=== PATIENT | female | born 2000 | race Caucasian/White ===

== ENCOUNTER 2018-04-29 23:14 | Emergency (ER) | payer OTHER ==
[2018-04-29] MEDS ORDERED: NS 1,000 ML IV ONE ×2 (23:26)
[2018-04-29] MEDS ORDERED: ONDANSETRON 4 MG/2 ML VIAL IVP ONE (23:26)
[2018-04-29] MEDS ORDERED: FAMOTIDINE 20 MG/NACL 50 ML IV ONE (23:26)
--- NOTE | 2018-04-29 23:26 | EDPHY ---
H & P Stated Complaint: N/V X 2 DAYS Source: Patient Exam Limitations: No limitations - Personal History LMP (Females 10-55): Now Current Tetanus Diphtheria and Acellular Pertussis (TDAP): Yes - Medical/Surgical History Hx Asthma: No Hx Chronic Respiratory Disease: No Hx Diabetes: No Hx Cardiac Disease: No Hx Renal Disease: No Hx Cirrhosis: No Hx Alcoholism: No Hx HIV/AIDS: No Hx Splenectomy or Spleen Trauma: No Other PMH: MJ USE, ARTHRITIS BACK AND HIPS - Social History Smoking Status: Current every day smoker Time Seen by Provider: 04/29/18 23:22 HPI/ROS: HPI: This is a 17-year-old female who presents with Chief Complaint: Nausea, vomiting x2 days Location: GI Quality: Nausea, vomiting Duration: 2 days Signs and Symptoms: no fever, + nausea, + vomiting, no hematemesis, no blood in stool, no abdominal bloating, no diarrhea, no back pain, no urinary symptoms, no vaginal bleeding/discharge, no indigestion, no chest pain, no shortness of breath, + epigastric pain Timing: Acute, worsening Severity: Moderate Context: Patient is currently on her menses, presents with sudden onset of nausea 2 days and woke up yesterday morning nausea approximately 5-10 episodes of vomiting throughout the day. She reports that she has epigastric pain that is described as burning and sharp in nature. It is nonradiating. She reports that she had only 1 episode of loose stool. No recent foreign travel, no recent antibiotic use, no recent concerns of food borne illness. Patient reports that she does not drink alcohol regularly or use NSAIDs. Denies indigestion, food intolerances, early satiety. Modifying Factors: Comment: ROS: A comprehensive 10 system review of systems is otherwise negative aside from elements mentioned in the history of present illness. MEDICAL/SURGICAL/SOCIAL HISTORY: Medical history: ARTHRITIS BACK AND HIPS Surgical history: Denies Social history: Marijuana use. Family history noncontributory. CONSTITUTIONAL: Well-developed, well-nourished, nontoxic-appearing teenage white female, awake and alert, no obvious distress HEENT: Atraumatic and normocephalic, PERRL, EOMI. Nares patent; no rhinorrhea; no nasal mucosal edema. Tympanic membranes clear. Oropharynx clear, no exudate and moist pink mucosa. Airway patent. No lymphadenopathy. No meningismus. Cardiovascular: Normal S1/S2, regular rate, regular rhythm, without murmur rub or gallop. PULMONARY/CHEST: Symmetrical and nontender. Clear to auscultation bilaterally. Good air movement. No accessory muscle usage. ABDOMEN: Soft, nondistended, moderate epigastric tenderness, no rebound, no guarding, no peritoneal signs, no masses or organomegaly. No CVAT. EXTREMITIES: 2/2 pulses, strength 5/5, no deformities, no clubbing, no cyanosis or edema. NEUROLOGICAL: no focal neuro deficits. GCS 15. SKIN: Warm and dry, no erythema. no rash. Good capillary refill. (Jenna Almonte) Constitutional: Initial Vital Signs Temperature (C) 36.8 C 04/29/18 23:16 Heart Rate 105 H 04/29/18 23:16 Respiratory Rate 16 04/29/18 23:16 Blood Pressure 136/87 H 04/29/18 23:16 O2 Sat (%) 97 04/29/18 23:16 O2 Delivery Mode Room Air Allergies/Adverse Reactions: amoxicillin Allergy (Verified 04/29/18 23:16) Home Medications: Medication Instructions Recorded NK [No Known Home Meds] 04/29/18 Medical Decision Making ED Course/Re-evaluation: Signs reviewed and show mild tachycardia upon arrival. IV access, laboratory studies, CT abdomen and pelvis scan ordered Patient given 1 L normal saline, IV Pepcid and IV Zofran 4 mg 0005: End of shift. Signed over to Dr. Man pending laboratory studies CT results. This patient was seen under the supervision of my secondary supervising physician. I evaluated care for this patient with attending. Discussed this patient with Dr. Man. (Jenna Almonte) 0112: Patient was signed over to me at midnight. She was pending a CT scan abdomen pelvis with IV contrast for abdominal pain. This CT scan is faxed me by direct Radiology at time 1:02 a.m. That shows a mildly dilated appendix with questionable mild wall thickening but without convincing surrounding inflammatory changes possibly representing early mild acute appendicitis. Additionally there is mild wall thickening of the terminal ileum suspicious for terminal ileitis IUD in the lower uterine segment. Right arm suspected be embedded in the myometrium follow up with OBGYN about this. I went saw and evaluated the patient she states that she had 5 episodes of vomiting and some abdominal pain or abdominal pain was predominantly in the upper abdomen. She denies any current right lower quadrant pain. However given her abnormal CT scan and leukocytosis I will consult surgery for evaluation 0118: I have consult General surgery about the patient's CT scan results. I am concerning for acute appendicitis however clinically on exam the abdomen is soft in the right lower quadrant. Dr. Lofton will consult see and evaluate the patient. 0212AM: Dr. Lofton with General surgery has seen and evaluated the patient. He does not feel this is acute appendicitis he feels comfortable the patient going home. We discussed return precautions with the patient. She understands return emergency room she develops worsening abdominal pain, fever, vomiting. She is comfortable going home. We discussed return precautions Dr. Lofton is okay with her going home. He does not feel this is appendicitis. 0229AM: Updated patient on treatment plan. Updated patient on going home and return precautions Additionally discussed at length about her IUD and how this is position. She should follow up with OBGYN. She understands and will do so. She understands return emergency room if she develops worsening abdominal pain, fever, vomiting. (Jose Manuel Man) Differential Diagnosis: Abdominal pain including but not limited to appendicitis, cholecystitis, gastritis and urinary tract infection. (Jenna Almonte) - Data Points Laboratory Results: Laboratory Results 04/29/18 23:30 04/30/18 00:05 04/30/18 04/30/18 04/29/18 01:23 00:05 23:30 WBC RBC Hgb Hct MCV MCH MCHC RDW Plt Count MPV Neut % (Auto) Lymph % (Auto) [place] % (Auto) Eos % (Auto) Baso % (Auto) Nucleat RBC Rel Count Absolute Neuts (auto) Absolute Lymphs (auto) Absolute Monos (auto) Absolute Eos (auto) Absolute Basos (auto) Absolute Nucleated RBC Immature Gran % Immature Gran # Sodium 139 mEq/L mEq/L (135-145) Potassium 3.5 mEq/L mEq/L (3.5-5.2) Chloride 105 mEq/L mEq/L (97-110) Carbon Dioxide 20 mEq/l L mEq/l (22-31) Anion Gap 14 mEq/L mEq/L (6-14) BUN 11 mg/dL mg/dL (7-23) Creatinine 0.6 mg/dL mg/dL (0.6-1.0) Estimated GFR > 60 Glucose 99 mg/dL mg/dL (70-100) Calcium 9.0 mg/dL mg/dL (8.5-10.4) Total Bilirubin 2.6 mg/dL H mg/dL (0.1-1.4) Conjugated Bilirubin 0.6 mg/dL H mg/dL (0.0-0.5) Unconjugated Bilirubin 2.0 mg/dL H mg/dL (0.0-1.1) AST 57 IU/L H IU/L (14-46) ALT 76 IU/L H IU/L (9-52) Alkaline Phosphatase 116 IU/L IU/L (38-126) Total Protein 7.9 g/dL g/dL (6.3-8.2) Albumin 4.7 g/dL g/dL (3.5-5.0) Lipase 44 IU/L IU/L (23-300) Beta HCG, Qual NEGATIVE Urine Color YELLOW Urine Appearance CLEAR Urine pH 6.0 (5.0-7.5) Ur Specific [place] > 1.060 H (1.002-1.030) Urine Protein NEGATIVE (NEGATIVE) Urine Ketones 2+ H (NEGATIVE) Urine Blood 1+ H (NEGATIVE) Urine Nitrate NEGATIVE (NEGATIVE) Urine Bilirubin NEGATIVE (NEGATIVE) Urine Urobilinogen NEGATIVE EU EU (0.2-1.0) Ur Leukocyte Esterase NEGATIVE (NEGATIVE) Urine RBC 1-3 /hpf /hpf (0-3) Urine WBC 1-3 /hpf /hpf (0-3) Ur Epithelial Cells TRACE /lpf /lpf (NONE-1+) Urine Mucus TRACE /lpf /lpf (NONE-1+) Urine Glucose NEGATIVE (NEGATIVE) 04/29/18 23:30 WBC 16.22 10^3/uL H 10^3/uL (3.80-9.50) RBC 5.68 10^6/uL H 10^6/uL (4.18-5.33) Hgb 17.2 g/dL H g/dL (12.6-16.3) Hct 50.5 % H % (38.0-47.0) MCV 88.9 fL fL (81.5-99.8) MCH 30.3 pg pg (27.9-34.1) MCHC 34.1 g/dL g/dL (32.4-36.7) RDW 12.6 % % (11.5-15.2) Plt Count 339 10^3/uL 10^3/uL (150-400) MPV 9.9 fL fL (8.7-11.7) Neut % (Auto) 84.6 % H % (39.3-74.2) Lymph % (Auto) 4.5 % L % (15.0-45.0) [place] % (Auto) 6.9 % % (4.5-13.0) Eos % (Auto) 3.3 % % (0.6-7.6) Baso % (Auto) 0.4 % % (0.3-1.7) Nucleat RBC Rel Count 0.0 % % (0.0-0.2) Absolute Neuts (auto) 13.72 10^3/uL H 10^3/uL (1.70-6.50) Absolute Lymphs (auto) 0.73 10^3/uL L 10^3/uL (1.00-3.00) Absolute Monos (auto) 1.12 10^3/uL H 10^3/uL (0.30-0.80) Absolute Eos (auto) 0.53 10^3/uL H 10^3/uL (0.03-0.40) Absolute Basos (auto) 0.07 10^3/uL 10^3/uL (0.02-0.10) Absolute Nucleated RBC 0.00 10^3/uL 10^3/uL (0-0.01) Immature Gran % 0.3 % % (0.0-1.1) Immature Gran # 0.05 10^3/uL 10^3/uL (0.00-0.10) Sodium Potassium Chloride Carbon Dioxide Anion Gap BUN Creatinine Estimated GFR Glucose Calcium Total Bilirubin Conjugated Bilirubin Unconjugated Bilirubin AST ALT Alkaline Phosphatase Total Protein Albumin Lipase Beta HCG, Qual Urine Color Urine Appearance Urine pH Ur Specific [place] Urine Protein Urine Ketones Urine Blood Urine Nitrate Urine Bilirubin Urine Urobilinogen Ur Leukocyte Esterase Urine RBC Urine WBC Ur Epithelial Cells Urine Mucus Urine Glucose Medications Given: Discontinued Medications Sodium Chloride (Ns) 1,000 mls @ 0 mls/hr IV EDNOW ONE; Wide Open PRN Reason: Protocol Stop: 04/29/18 23:27 Last Admin: 04/29/18 23:33 Dose: 1,000 mls Sodium Chloride (Ns) 1,000 mls @ 0 mls/hr IV EDNOW ONE; Wide Open PRN Reason: Protocol Stop: 04/29/18 23:27 Last Admin: 04/29/18 23:33 Dose: 1,000 mls Famotidine/Sodium Chloride (Pepcid 20 Mg (Premix)) 50 mls @ 200 mls/hr IV EDNOW ONE Stop: 04/29/18 23:40 Last Admin: 04/29/18 23:32 Dose: 50 mls Ondansetron HCl (Zofran) 4 mg IVP EDNOW ONE Stop: 04/29/18 23:27 Last Admin: 04/29/18 23:33 Dose: 4 mg Departure - Departure Disposition: Home, Routine, Self-Care Clinical Impression: Abdominal pain Qualifiers: Abdominal location: unspecified location Qualified Code(s): R10.9 - Unspecified abdominal pain Condition: Good Instructions: Gastroenteritis (ED), Acute Abdominal Pain (ED) Additional Instructions: 1. Please return emergency room she develops worsening abdominal pain fever vomiting. 2. You're appendix on her CT scan today was slightly abnormal however the surgical team did not feel that you have acute appendicitis 3. If you have worsening abdominal pain, fever, vomiting you need to return to the emergency room 4. Additionally her IUD that was seen on the CT scan needs to be further evaluated by OBGYN. 5. Please follow up with them. Referrals: [facility],. [Clinic] - As per Instructions Linh Devries MD [Medical Doctor] - As per Instructions
[2018-04-29] MEDS ORDERED: IOHEXOL 300 mgI/ML (OMNIPAQUE) 150 ML BTL IV ONE (23:32)
[2018-04-29 23:40] LABS: PLATELET COUNT 339 10^3/uL (150-400)
[2018-04-30] MEDS ORDERED: ONDANSETRON 4MG PREPACK#2 BTL TAKEHOME ONE ×2 (02:36→02:37)
--- NOTE | 2018-04-30 03:02 | GCON ---
[f rep st] CONSULTATION REFERRING PHYSICIAN: Jose Manuel Man MD REASON FOR CONSULTATION: Abdominal pain, evaluate for possible appendicitis. FINDINGS: Abdominal pain of uncertain etiology, mesenteric adenitis, calcification right lower quadrant that might possibly represent a fecalith. Elevated transaminases (minimally), Gilbert syndrome. 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 Today is . She awoke from sleep on Friday with nausea. Approximately 30 minutes later, she vomited. She had more nausea. She tried eating eggs for breakfast and vomited. Friday afternoon, she had cramping abdominal pain in the epigastrium. She was not hungry for lunch or dinner. She slept only 4 hours Friday night and managed to toss and turn a great deal. On awakening on Friday, she felt a little better. She did not have breakfast or lunch. At approximately 5 p.m., she was able to have a small amount of applesauce and rice. She has not had any vomiting since that time. Her cramps have been much more controlled. She noticed a pins and needle feeling in her hands. She did Google that and was concerned she might have toxic shock from what she found on the Internet. She just finished her most recent menstrual period today. She has had a bit of a rash on her chest and neck. She is now plus-minus hungry. She certainly is feeling dramatically better in the ER now than when she first arrived. There is no history of a recent upper respiratory tract infection, though she feels may have a slight sore throat today. There is no history of diarrhea. There is no history of travel or antibiotics in the last 6 months. There is no history of inflammatory bowel disease. She has not had any prior similar symptoms or any prior abdominal surgery. She has had an IUD placed. PAST MEDICAL HISTORY: She vapes approximately once every 5 days. She does not drink. 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 She has no known drug allergies. She is not currently taking medication. She does, however, use cannabis for insomnia and arthritis in her back and hips. As mentioned, her only surgery has been an IUD placement. There is no history of rheumatic fever, tuberculosis, hepatitis, or transfusions. REVIEW OF SYSTEMS: She has had 4 concussions in the past. She does wear contacts for visual correction. She had asthma as a child but "outgrew it." Her last menstrual period finished today and was normal in duration and flow for her. She has a history of elevated liver functions in the past. She feels it was due to the pain medication she used to take for her arthritis. There are no limits on her activities. No history of steroid use. FAMILY HISTORY: Mother is 49, alive and well. Father is 55 and alive and well. The patient has an older sister who is 23 who is alive and well. There are no bleeding disorders, clotting disorders, difficulty with anesthesia in the patient and the family. PHYSICAL EXAMINATION: GENERAL: She is awake, alert, pleasant, and engaging. HEENT: Her skull is normocephalic and atraumatic. NEUROLOGIC: Does not show any signs of focal lateralizing findings. Certainly , there is no carpopedal spasm at this point. LUNGS: Clear to auscultation. NECK: Shows no evidence of carotid bruit or thyroid enlargement. LYMPHATICS: There is no cervical, supraclavicular, axillary, or inguinal lymphadenopathy. CARDIAC: Shows S1, S2 to be normal with normal split of S2 without murmurs, rubs, or gallops. ABDOMINAL: Shows a minimally distended abdomen. Bowel sounds are rare. She is tender with cough at a 2 on a scale of 1-10 in the epigastrium. To palpation, she is tender in the left upper quadrant at 1, left midabdomen at 1, left lower quadrant 1, epigastrium 2, periumbilical area 1, suprapubic area 1, right upper quadrant 1, right midabdomen 1, right lower quadrant 1, and over the iliac crest 1. Psoas and obturator signs are negative. LABORATORIES: Show white count of 16,000 with 84% neutrophils. Hematocrit is 50. Platelet counts are at 339. Her beta hCG is negative. Her bilirubin is elevated at 2.6 with 2.0 of that being unconjugated. Her lipase is 44. Specific gravity is 1.060. Her AST is 57. Her ALT is 76. Her CAT scan does show, as mentioned above, lymphadenopathy along the ileocolic vessels. It is hard to tease out the appendix on the CAT scan. There is 1 small calcification in the region of the cecum/terminal ileum/appendix. I am unsure if this is an appendicolith or not. IMPRESSION: This patient feels dramatically better than when she arrived. I cannot make the case for appendicitis given her physical examination or her findings. I feel it is reasonable to dismiss her from the emergency room and have her follow up as needed. I have suggested she take clear liquids for the next 24 hours. I suggest she take Tylenol 1000 mg every 8 hours and use Motrin 200 mg every 4 hours as needed. Certainly if her pain becomes an issue again, she should return for further evaluation. I told her I could not eliminate appendicitis or ileitis due to Crohn disease. I rather suspect this is more a viral process, which should resolve on its own. /[id number]/MODL MTDD
[2018-04-30 03:09] VITALS: BP 131/73
== END 2018-04-30 03:09 | disposition home or self-care (01) ==
DX: R10.13 Epigastric pain (principal); R11.10 Vomiting, unspecified; E86.9 Volume depletion, unspecified
CPT/HCPCS: 96374; J2405; Q9967

== ENCOUNTER 2018-05-01 01:30 | Emergency (ER) | payer OTHER ==
[2018-05-01] MEDS ORDERED: NS 1,000 ML IV ONE ×2 (01:55→03:38)
--- NOTE | 2018-05-01 02:19 | EDPHY ---
H & P Stated Complaint: upper abd pain Time Seen by Provider: 05/01/18 02:17 HPI/ROS: HPI CHIEF COMPLAINT: Abdominal pain. HISTORY OF PRESENT ILLNESS: This is a very pleasant 17-year-old female who was just recently here in the emergency room last night who I in fact saw for abdominal pain and that time had a workup for appendicitis. She had what was thought to be an equivocal appendicitis on CT. Surgery was consult do not feel that she had acute appendicitis she went home. She now presents back to the emergency room with 1 episode of vomiting, abdominal bloating and some right upper quadrant abdominal pain. She denies fever. Denies chest pain or shortness of breath. Past Medical History: Arthritis Past Surgical History: Denies recent surgery Social History: Marijuana use. Family History: Noncontributory ROS REVIEW OF SYSTEMS: 10 Systems were reviewed and negative with the exception of the elements mentioned in the history of present illness. Exam Constitutional appears well nontoxic triage nursing summary reviewed, vital signs reviewed, awake/alert. Vital signs stable. Eyes normal conjunctivae and sclera, EOMI, PERRLA. HENT normal inspection, atraumatic, moist mucus membranes, no epistaxis, neck supple/ no meningismus, no raccoon eyes. Respiratory clear to auscultation bilaterally, normal breath sounds, no respiratory distress, no wheezing. Cardiovascular rate normal, regular rhythm, no murmur, no edema, distal pulses normal. Gastrointestinal mild tender palpation right upper quadrant,, no rebound, no guarding, normal bowel sounds, no distension, no pulsatile mass. Genitourinary no CVA tenderness. Musculoskeletal no midline vertebral tenderness, full range of motion, no calf swelling, no tenderness of extremities, no meningismus, good pulses, neurovascularly intact. Skin pink, warm, & dry, no rash, skin atraumatic. Neurologic awake, alert and oriented x 3, AAOx3, moves all 4 extremities equally, motor intact, sensory intact, CN II-XII intact, normal cerebellar, normal vision, normal speech. Psychiatric normal mood/affect. Heme/Lymph/Immune no lymphadenopathy. Differential Diagnosis: Differential diagnosis includes but is not limited to and in no particular order: Bowel obstruction, appendicitis, gallbladder disease, diverticulitis, colitis, enteritis, perforated viscus, gastritis, GERD , esophagitis, urinary tract infection, pyelonephritis, kidney stones Medical Decision Making: Plan for this patient IV establishment IV fluid bolus , basic blood work, lactic acid, CMP, CBC, ultrasound right upper quadrant re- evaluate. Re-evaluation: Ultrasound of the right upper quadrant faxed me by direct Radiology at 2:55 a.m. Unremarkable right upper quadrant ultrasound. Patient re-evaluated at 3:39 a.m.. Patient continues to have abdominal pain. I have ordered her IV Dilaudid 0.5 mg and a 2nd L fluid. Ultrasound of her right upper quadrant is unremarkable I reviewed her CT scan from yesterday. Additionally her white blood cell count is down from yesterday. Given her ongoing abdominal pain I will consult Dr. Lofton who saw her yesterday for further evaluation. 0345AM: I consult Dr. Lofton. He will see and evaluate the patient. Updated patient. IV Dilaudid 0.5 mg ordered. IV fluids ordered. Abdominal exam still has some mild tenderness. Not peritoneal. 0449: Patient was seen in consultation by Dr. Lofton. He did see and evaluate the patient. He did not feel the patient needed emergent surgery. He is comfortable going home. He did offer her surgery laparoscopic walk however they agree that this would not be the best plan at this time. She feels comfortable going home I again discussed with her return precautions return emergency room if worsening abdominal pain, fever, vomiting. Dr. Lofton saw her and evaluated her. Recommend she goes home. 0653: Return precautions discussed she understands return emergency room she develops worsening abdominal pain, fever, vomiting. Source: Patient - Personal History LMP (Females 10-55): 1-7 Days Ago Current Tetanus/Diphtheria Vaccine: Yes Current Tetanus Diphtheria and Acellular Pertussis (TDAP): Yes - Medical/Surgical History Hx Asthma: No Hx Chronic Respiratory Disease: No Hx Diabetes: No Hx Cardiac Disease: No Hx Renal Disease: No Hx Cirrhosis: No Hx Alcoholism: No Hx HIV/AIDS: No Hx Splenectomy or Spleen Trauma: No Other PMH: MJ USE, ARTHRITIS BACK AND HIPS - Social History Smoking Status: Current every day smoker Constitutional: Initial Vital Signs Temperature (C) 37.0 C 05/01/18 01:32 Heart Rate 86 05/01/18 01:32 Respiratory Rate 16 05/01/18 01:32 Blood Pressure 117/84 H 05/01/18 01:32 O2 Sat (%) 96 05/01/18 01:32 O2 Delivery Mode Room Air Allergies/Adverse Reactions: amoxicillin Allergy (Verified 05/01/18 01:35) Home Medications: Medication Instructions Recorded Ondansetron HCl [Zofran] 4 mg PO Q4-6PRN PRN #10 tablet 05/01/18 Medical Decision Making - Data Points Laboratory Results: Laboratory Results 05/01/18 02:10 05/01/18 02:10 05/01/18 05/01/18 05/01/18 03:25 02:10 02:10 WBC 10.12 10^3/uL H 10^3/uL (3.80-9.50) RBC 4.69 10^6/uL 10^6/uL (4.18-5.33) Hgb 14.4 g/dL g/dL (12.6-16.3) Hct 40.7 % % (38.0-47.0) MCV 86.8 fL fL (81.5-99.8) MCH 30.7 pg pg (27.9-34.1) MCHC 35.4 g/dL g/dL (32.4-36.7) RDW 12.8 % % (11.5-15.2) Plt Count 288 10^3/uL 10^3/uL (150-400) MPV 10.0 fL fL (8.7-11.7) Neut % (Auto) 76.5 % H % (39.3-74.2) Lymph % (Auto) 5.9 % L % (15.0-45.0) [place] % (Auto) 9.6 % % (4.5-13.0) Eos % (Auto) 7.3 % % (0.6-7.6) Baso % (Auto) 0.4 % % (0.3-1.7) Nucleat RBC Rel Count 0.0 % % (0.0-0.2) Absolute Neuts (auto) 7.74 10^3/uL H 10^3/uL (1.70-6.50) Absolute Lymphs (auto) 0.60 10^3/uL L 10^3/uL (1.00-3.00) Absolute Monos (auto) 0.97 10^3/uL H 10^3/uL (0.30-0.80) Absolute Eos (auto) 0.74 10^3/uL H 10^3/uL (0.03-0.40) Absolute Basos (auto) 0.04 10^3/uL 10^3/uL (0.02-0.10) Absolute Nucleated RBC 0.00 10^3/uL 10^3/uL (0-0.01) Immature Gran % 0.3 % % (0.0-1.1) Immature Gran # 0.03 10^3/uL 10^3/uL (0.00-0.10) VBG Lactic Acid Sodium 140 mEq/L mEq/L (135-145) Potassium 3.5 mEq/L mEq/L (3.5-5.2) Chloride 107 mEq/L mEq/L (97-110) Carbon Dioxide 22 mEq/l mEq/l (22-31) Anion Gap 11 mEq/L mEq/L (6-14) BUN 8 mg/dL mg/dL (7-23) Creatinine 0.6 mg/dL mg/dL (0.6-1.0) Estimated GFR > 60 Glucose 101 mg/dL H mg/dL (70-100) Calcium 9.4 mg/dL mg/dL (8.5-10.4) Total Bilirubin 2.4 mg/dL H mg/dL (0.1-1.4) Conjugated Bilirubin 0.6 mg/dL H mg/dL (0.0-0.5) Unconjugated Bilirubin 1.8 mg/dL H mg/dL (0.0-1.1) AST 67 IU/L H IU/L (14-46) ALT 87 IU/L H IU/L (9-52) Alkaline Phosphatase 115 IU/L IU/L (38-126) Total Protein 7.0 g/dL g/dL (6.3-8.2) Albumin 4.1 g/dL g/dL (3.5-5.0) Lipase 95 IU/L IU/L (23-300) Urine Color YELLOW Urine Appearance HAZY Urine pH 5.0 (5.0-7.5) Ur Specific Vera 1.010 (1.002-1.030) Urine Protein NEGATIVE (NEGATIVE) Urine Ketones 1+ H (NEGATIVE) Urine Blood 2+ H (NEGATIVE) Urine Nitrate NEGATIVE (NEGATIVE) Urine Bilirubin NEGATIVE (NEGATIVE) Urine Urobilinogen 2.0 EU H EU (0.2-1.0) Ur Leukocyte Esterase 2+ H (NEGATIVE) Urine RBC 3-5 /hpf H /hpf (0-3) Urine WBC 5-10 /hpf H /hpf (0-3) Ur Epithelial Cells 2+ /lpf H /lpf (NONE-1+) Urine Bacteria TRACE /hpf H /hpf (NONE SEEN) Urine Mucus TRACE /lpf /lpf (NONE-1+) Urine Glucose NEGATIVE (NEGATIVE) 05/01/18 02:10 WBC RBC Hgb Hct MCV MCH MCHC RDW Plt Count MPV Neut % (Auto) Lymph % (Auto) [place] % (Auto) Eos % (Auto) Baso % (Auto) Nucleat RBC Rel Count Absolute Neuts (auto) Absolute Lymphs (auto) Absolute Monos (auto) Absolute Eos (auto) Absolute Basos (auto) Absolute Nucleated RBC Immature Gran % Immature Gran # VBG Lactic Acid 0.9 mmol/L mmol/L (0.7-2.1) Sodium Potassium Chloride Carbon Dioxide Anion Gap BUN Creatinine Estimated GFR Glucose Calcium Total Bilirubin Conjugated Bilirubin Unconjugated Bilirubin AST ALT Alkaline Phosphatase Total Protein Albumin Lipase Urine Color Urine Appearance Urine pH Ur Specific Vera Urine Protein Urine Ketones Urine Blood Urine Nitrate Urine Bilirubin Urine Urobilinogen Ur Leukocyte Esterase Urine RBC Urine WBC Ur Epithelial Cells Urine Bacteria Urine Mucus Urine Glucose Medications Given: Discontinued Medications Hydromorphone HCl (Dilaudid) 0.5 mg IVP EDNOW ONE Stop: 05/01/18 03:39 Last Admin: 05/01/18 03:52 Dose: 0.5 mg Sodium Chloride (Ns) 1,000 mls @ 0 mls/hr IV EDNOW ONE; Wide Open PRN Reason: Protocol Stop: 05/01/18 01:56 Last Admin: 05/01/18 02:10 Dose: 1,000 mls Sodium Chloride (Ns) 1,000 mls @ 0 mls/hr IV ONCE ONE PRN Reason: Wide Open Stop: 05/01/18 03:39 Last Admin: 05/01/18 03:40 Dose: 1,000 mls Ondansetron HCl (Zofran) 4 mg IVP EDNOW ONE Stop: 05/01/18 03:39 Last Admin: 05/01/18 03:52 Dose: 4 mg Departure - Departure Disposition: Home, Routine, Self-Care Clinical Impression: Abdominal pain Qualifiers: Abdominal location: unspecified location Qualified Code(s): R10.9 - Unspecified abdominal pain Condition: Good Instructions: Acute Abdominal Pain (ED) Additional Instructions: 1. Please return to the emergency room if he develops worsening abdominal pain, fever, vomiting. Referrals: NONE *PRIMARY CARE P,. [Primary Care Provider] - As per Instructions Prescriptions: Ondansetron HCl [Zofran] 4 mg PO Q4-6PRN PRN #10 tablet PRN Reason: Nausea/Vomiting, Use 1st
[2018-05-01 02:46] LABS: PLATELET COUNT 288 10^3/uL (150-400)
[2018-05-01] MEDS ORDERED: HYDROmorphONE/DILAUDID 2 MG/ML INJ IVP ONE (03:38)
[2018-05-01] MEDS ORDERED: ONDANSETRON 4 MG/2 ML VIAL IVP ONE (03:38)
[2018-05-01] MEDS ORDERED: HYDROmorphONE/DILAUDID 1 MG/ML INJ ONE (03:46)
--- NOTE | 2018-05-01 06:15 | GCON ---
[f rep st] CONSULTATION Please see consultation 04/29/2018. The patient presented at that time with abdominal discomfort. S he had extensive mesenteric adenitis. It was hard to say that she distinctly had appendicitis. Her IUD may be impacting the myometrium and plans have been made for picker box operator evaluation and possible removal. She was sent home with Zofran for nausea. She did well, but had complained of a low-grade discomfort . She ate rice and applesauce, then did complain of some bloating. She had nausea and vomited 1 vamshi e midday on 04/30. She is hungry at this point. Her vital signs show blood pressure of 139/72, hear t rate 83, respirations 18, room air saturation is 93%. She was found last time to have Gilbert synd gabriela. Her white blood cell count has gone from 16,000 to 10,000 with 76% neutrophils. Her hematocri t has gone from 50 to 40. Her platelet count has gone from 339 to 288. Her AST has gone up slightly from 57 to 67. Her ALT has gone up slightly from 76 to 87. PHYSICAL EXAMINATION: ABDOMEN: Nontender with cough. Psoas and obturator signs are negative. To p alpation, left upper quadrant is 1 on a scale of 1 to 10, left midabdomen is 1, left lower quadrant i s 2, epigastrium is 1, periumbilical area is 1, suprapubic area is 1, right upper quadrant is 1, righ t mid abdomen is 1, right lower quadrant is 1. She states she feels as if she has gas. RECOMMENDATIONS: At this point, I do not feel further imaging is necessary. I do feel this is a christine f-limiting process. I do not feel that admission for observation is necessary. I do recommend that she go home on Tylenol 1000 mg every 8 hours. She will take Toradol 10 mg every 6 hours, and she vin l use Zofran for nausea. She will return as needed. She will follow up with her picker box operator appointment. S he is very comfortable with this approach. /[id number]/MODL
[2018-05-01 07:18] VITALS: BP 116/55
== END 2018-05-01 07:17 | disposition home or self-care (01) ==
LOC: UNDOADMOB 03:44
DX: R10.11 Right upper quadrant pain (principal); E86.9 Volume depletion, unspecified
CPT/HCPCS: 96374; J1170